=== PATIENT | female | born 1960 ===

== ENCOUNTER 2019-08-30 21:48 | Emergency (ER) | payer OTHER ==
[2019-08-30] MEDS ORDERED: PROMETHAZINE HCL 25 MG/ML VIAL ONE (22:20)
[2019-08-30] MEDS ORDERED: MECLIZINE HCL 25 MG TABLET PO ONE (22:20)
[2019-08-30] MEDS ORDERED: PROMETHAZINE HCL 25 MG TABLET PO ONE (22:20)
[2019-09-04 14:27] LABS: BASOPHILS % 0.4 % (0.0-1.5); NEUTROPHILS # 5.6 # k/uL (1.4-7.7); eGFR (Non-African) > 60
== END 2019-08-30 23:59 ==
LOC: ED 21:48
DX: R42 Dizziness and giddiness (principal)
CPT/HCPCS: 80053; 82150; 83690; 85025; 99283; 99284; J2550